=== PATIENT | male | born 1995 | race Caucasian/White ===

== ENCOUNTER 2020-05-31 07:02 | Outpatient (CLI) | payer BC, SELFPAY ==
--- NOTE | 2020-06-04 07:44 | SLEEP_ITS ---
HOME SLEEP STUDY DATE OF STUDY: 05/31/2020 ORDERING PHYSICIAN: Dr. Saleem Brown. REASON FOR THE STUDY: Hypersomnia. HISTORY: This patient is a 24-year-old man, 278 pounds weight, height is 6 feet tall, so his BMI is 37.7. He has complaints of unable to wake up and the alarm goes off in the morning. In fact, he cannot wake up at all unless somebody else is present to assure that he wakes. He frequently snores, but only rarely is at loud enough that others complain about it. He is excessively sleepy in the morning and has difficulty waking up. He rarely has trouble sleeping with a cold, rarely gasps for breath at night and rarely has breathing problems at night reported to him by others. He constantly sweats excessively at night. He does not notice his heart pounding or beating irregularly at night. He frequently falls asleep during the day, constantly involuntarily, rarely while driving, never with physical effort. He does not have loss of muscle tone with strong emotion. He frequently has daytime difficulty due to excessive sleepiness. 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 He does not feel paralyzed on waking or falling asleep. He does not have vivid dreamlike scenes upon awakening or falling asleep. He is never afraid to go to sleep. He does not have nightmares. He occasionally remembers his dreams, occasionally has racing thoughts, occasionally feels sad or depressed, frequently feels anxious. He rarely has muscular tension. He occasionally notices parts of his body jerking. He never kicks at night, does not have crawly achy feelings in his legs at night, does not have leg pain at night and does not have morning jaw pain. He does not grind his teeth at night. He rarely is bothered by pain during the day. He is never awakened by pain at night. He occasionally wakes up feeling stiff in the morning. He does not wake up with sore achy muscles. He rarely wakes up with pain in the neck and spine. He has stomach problems, fatigue. He feels tense, depressed, has a difficult time making decisions and takes antacids regularly. Normal bedtime is between 9 and 10 p.m., taking a 0.5 hour or an hour to fall asleep, sometimes not waking at all, but on other occasions, he wakes to use the bathroom. He usually wakes up in the middle of the night. He wakes in the morning at 6:30 a.m. On the weekends, he may stay awake until 10-12 midnight and then awaken the following day between 11 a.m. and 12 noon, so he does get recovery sleep. He does not take naps. A short nap is not refreshing. He is usually drowsy in the morning for 3 hours or longer. MEDICAL COMORBIDITIES: Gastroesophageal reflux disease, seasonal allergies. MEDICATIONS: None listed. HABITS: Tobacco quit a year ago. Caffeine, 2 to 4 servings a day. He drinks alcohol not daily, just on the weekends. He uses marijuana as a recreational drugs. DESCRIPTION OF THE STUDY: On the Brokaw Sleepiness Scale, the score is 16. This was conducted as an unattended type 3 portable home sleep test using 4 channel monitoring including respiratory effort channel, snoring channel, oxygen saturation channel, and heart rate channel. This study was scored using [facility] guidelines. Duration of the study was 7 hours 7 minutes. The apnea-hypopnea index is elevated at 15. Oxygen desaturation index is 18.5. The lowest desaturation was 47%. The baseline average saturation was 92%. He had 3 apneas, which were obstructive, 104 hypopneas and 106 snoring events. He desaturated 115 times and spent 70 minutes, 19% of the study below 88%. Heart rate ranged from 50 to 105. IMPRESSION: 1. This home sleep test shows at least moderate obstructive sleep apnea syndrome G47.33 with an apnea-hypopnea index of 15, deep Systane desaturation
== END 2020-05-31 07:03 | disposition home or self-care (01) ==
LOC: ANHCSM 07:03
PROVIDERS: Visit Provider Internal Medicine
DX: G47.33 Obstructive sleep apnea (adult) (pediatric) (principal)
CPT/HCPCS: 95806

== ENCOUNTER → 2021-09-21 02:35 | Outpatient (CLI) | payer BC, SELFPAY ==
[2021-09-21 18:29] LABS: SARS-CoV-2 RNA PCR Negative
== END ==
PROVIDERS: PCP Internal Medicine; Visit Provider Internal Medicine Critical Care Medicine
DX: R68.89 Other general symptoms and signs (principal); Z20.822 Contact with and (suspected) exposure to COVID-19
CPT/HCPCS: C9803; U0003; U0005

== ENCOUNTER 2021-09-23 07:38 | Outpatient (CLI) | payer BC, SELFPAY ==
--- NOTE | 2021-10-17 13:15 | WPDSLEEPSTUD ---
Sleep Study Date of Study: 09/23/21 <Yumiko Mcdermott DO - Last Filed: 10/18/21 11:11> Ordering Provider: Hui Cheng MD <Yumiko Mcdermott DO - Last Filed: 10/18/21 11:11> Interpreting Physician: Yumiko Mcdermott DO <Yumiko Mcdermott DO - Last Filed: 10/18/21 11:11> Sleep Study Type: CPAP Titration <Yumiko Mcdermott DO - Last Filed: 10/18/21 11:11> Height: 1.83 m <Yumiko Mcdermott DO - Last Filed: 10/18/21 11:11> Weight: 127.006 kg <Yumiko Mcdermott DO - Last Filed: 10/18/21 11:11> Body Mass Index: 38.0 <Yumiko Mcdermott DO - Last Filed: 10/18/21 11:11> Neck Circumference (inches): 18 <Yumiko Mcdermott DO - Last Filed: 10/18/21 11:11> [place]: 6 <Yumiko Mcdermott DO - Last Filed: 10/18/21 11:11> Reason for Sleep Study Patient has known EVE and is currently on autoPAP 5-20 cm H2O. He states that he is wakes up during the night with the tubing wrapped around his neck. He ends up pulling the CPAP into his bed, spilling the water from the humidifier chamber in the bed. He uses the restroom during the night, but can't recall any of this. Concerns for additional sleep disorder. Patient has an average usage of 2.6 hours. <Yumiko Mcdermott DO - Last Filed: 10/18/21 11:11> Sleep History The patient is a 26-year-old male with seasonal allergies, GERD and known EVE that had a Pap titration ordered by his registered occupational therapist due to difficulties tolerating autoPap. The patient had a home sleep study on May 31, 2020 that showed an AHI of 15. The patient was prescribed auto PAP 5-20 cm H2O. The patient states that he wakes up during the night with the CPAP tubing wrapped around his neck. He ends up poly the machine into is bed because of that and spells of water from the humidifier chamber over his bed sheets. The patient's states that he gets up to use the restroom throughout the night but the patient has no recollection of this. There are concerns for a compounding sleep disorder. The patient denies awakening from sleep short of breath. He rarely awakens at night with heartburn, belching or cough. He occasionally snores loud enough that others complain. He occasionally has trouble sleeping when he has a cold. He denies waking up gasping for air throughout the night. He denies having breathing problems at night observed by others. He rarely sweats excessively at night. He denies having heart palpitations or irregular heartbeats during the night. He rarely falls asleep during the day and rarely falls asleep while driving. He denies sleep paralysis, cataplexy and hypnagogic / hypnopompic hallucinations. He rarely has trouble at work due to sleepiness. He occasionally has nightmares. He frequently has thoughts racing through his mind. He rarely feels sad or depressed. He occasionally has anxiety. He rarely notices parts of his body jerk. He occasionally kicks during the night. He denies crawling and aching feeling in his legs as well as leg pain during the night. He denies grinding his teeth during sleep and will rarely have mornings jaw pain. He denies being bothered by pain during the day and being awakened by pain during the night. He occasionally wakes up feeling stiff in the morning. He will rarely wake-up with sore and achy muscles. He will rarely wake up with pain in the neck, spine and other joints. The patient states that he has variable shifts at work and the schedule changes every week. The patient goes to bed at 8:30 p.m. on weekdays and between 10:00 p.m. and midnight on the weekends. It takes him an hour to fall asleep. He wakes up between 1-2 times per night. When he awakens, he will use the restroom and get a drink. He can fall asleep quickly. He wakes up at 6:30 a.m. on weekdays and between 9 and 10:00 a.m. on the weekend. He will get 6-7 hours of sleep per night. He will stay in bed for 1 hour after awakening
[2021-10-18 11:10] VITALS: BMI 38.0
== END 2021-09-24 07:21 | disposition home or self-care (01) ==
LOC: ANHCSM 07:38
PROVIDERS: PCP Internal Medicine; Visit Provider Internal Medicine Critical Care Medicine
DX: G47.33 Obstructive sleep apnea (adult) (pediatric) (principal)
CPT/HCPCS: 95811

== ENCOUNTER 2022-12-06 09:18 | Emergency (ER) | payer BC, SELFPAY ==
[2022-12-06 09:23] VITALS: BP 129/72; PULSE 83; RESP 16; TEMP 35.8; O2SAT 98
--- NOTE | 2022-12-06 09:23 | ED.URI ---
HPI - URI/Sore Throat General Chief Complaint: Upper Respiratory Infection Stated Complaint: Sinus Congestion Time Seen by Provider: 12/06/22 09:23 Source: patient and RN notes reviewed History of Present Illness HPI Narrative: Patient is a 27-year-old male who presents to urgent care with complaints of sinus congestion, sore throat fever. Patient has been taking Mucinex, Zyrtec D and Tylenol since Sunday. Denies any nausea or vomiting. No other acute complaints. No acute distress noted. Patient aware of the plan of care. Some parts of this dictation were generated by voice recognition software and may contain typographical and/or grammatical inaccuracies. Related Data Home Medications Medication Instructions Recorded Confirmed cholecalciferol (vitamin D3) 25 25 mcg PO DAILY 05/31/21 12/06/22 mcg (1,000 unit) capsule Allergies Allergy/AdvReac Type Severity Reaction Status Date / Time No Known Allergies Allergy Verified 12/06/22 09:36 Review of Systems Review of Systems: CONSTITUTIONAL: Reports of fever EYES: Denies visual changes, redness, or discharge. ENT: Reports of sinus congestion, drainage, sore throat CARDIOVASCULAR: Denies chest pain, palpitations, or edema. RESPIRATORY: Denies cough or dyspnea. GASTROINTESTINAL: Denies abdominal pain, nausea, vomiting, or diarrhea. GENITOURINARY: Denies dysuria or hematuria. SKIN: Denies rash or itching. MUSCULOSKELETAL: Denies back pain, joint pain, or myalgia. NEUROLOGIC: Denies headache, numbness, or weakness. All other systems reviewed are negative, except as documented in HPI. [facility] Past Medical History Medical History EVE (obstructive sleep apnea) Social History Social History Social History: , works for [employer]. 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 Smoking packs per day: 1 Smoking cigarettes per day: 20.0 Years smoked: 6 Smoking pack-years: 6.00 Smoking status: Current every day smoker (vapes) Tobacco type: e-cigarettes/vaping Alcohol intake: current Alcohol use details: Social Substance use: current Substance use type: marijuana Living arrangements: with family Occupation/Education: occupation Comments At the time of my signature, I reviewed and agree with the nursing past medical, surgical, social, and family history. There is no relevant family history pertinent to the patient complaint. Exam Narrative: GENERAL: This is a well-nourished, well-developed patient, in no apparent distress. HEAD: normocephalic, atraumatic. EYES: PERRL. Sclera clear/white. Vision is grossly intact. EARS: External ears normal, auditory canals clear and without drainage, TMs normal without perforation. Hearing grossly intact. NOSE: External nose normal with no obvious nasal discharge, nares without redness, no rhinorrhea. THROAT: Mucous membranes moist. Moderate erythema to posterior pharynx with mild to moderate bilateral tonsillar edema/erythema with moderate postnasal drainage NECK: Neck supple, non-tender bilateral submandibular lymphadenopathy CARDIOVASCULAR: Regular rate and rhythm RESPIRATORY: Clear to auscultation. Breath sounds equal bilaterally. No wheezes, rales, or rhonchi. SKIN: warm, intact with no suspicious lesions or rash, good texture and turgor. NEURO: awake, alert, and oriented to person, place and time. There were no obvious focal neurologic abnormalities. EXTREMITIES: No clubbing, cyanosis, or edema. Course Course Level of Care: Express Care Visit Vital Signs Vital signs: Vital Signs Temperature 96.4 F L 12/06/22 09:23 Pulse Rate 83 12/06/22 09:23 Respiratory Rate 16 12/06/22 09:23 Blood Pressure 129/72 12/06/22 09:23 Pulse Oximetry 98 12/06/22 09:23 Oxygen Delivery Room Air 12/06/22 09:23 Temperature 96.4 F L 12/06/22 09:23 Pulse Rate 83 12/06/22 09:
== END 2022-12-06 09:55 | disposition home or self-care (01) ==
PROVIDERS: Emergency Provider Nurse Practitioner Family
DX: J02.0 Streptococcal pharyngitis (principal); F17.290 Nicotine dependence, other tobacco product, uncomplicated
CPT/HCPCS: 87081; 87880; 99213; G0463

== ENCOUNTER 2024-09-27 16:43 | Emergency (ER) | payer BC, SELFPAY ==
[2024-09-27 17:04] VITALS: BP 132/75; PULSE 95; RESP 20; TEMP 38.9; O2SAT 96
--- NOTE | 2024-09-27 17:09 | ED.URI ---
HPI - URI/Sore Throat General Chief Complaint: Upper Respiratory Infection Stated Complaint: Body Aches/Cough/Sore Throat Time Seen by Provider: 09/27/24 17:14 Source: patient, RN notes reviewed and old records reviewed Mode of arrival: ambulatory Limitations: no limitations History of Present Illness HPI Narrative: 29 year old male presents to [facility] care with complaints of body aches, cough, sore throat, since yesterday with fevers up to 102F and chills. Patient reports that he has taken some Ibuprofen and Tylenol for his symptoms and fevers. Patient reports that he has been able to drink liquids has decreased appetite, has had any nausea no vomiting or any diarrhea. Patient reports some sinus congestion and some dry cough noted. MD elicited complaint: fever, cough, sore throat, rhinorrhea and nasal congestion Pertinent past history: other (strep) Onset (ago): day(s) Pain scale (0-10): 8 Able to tolerate fluids by mouth: Yes Treatments prior to arrival: acetaminophen and ibuprofen Related Data Home Medications ?Medication ?Instructions ?Recorded ?Confirmed ?Last Taken ?Type cholecalciferol (vitamin D3) 25 25 mcg PO DAILY 05/31/21 09/27/24 Unknown History mcg (1,000 unit) capsule Allergies Allergy/AdvReac Type Severity Reaction Status Date / Time No Known Allergies Allergy Verified 09/27/24 16:45 Review of Systems Review of Systems: CONSTITUTIONAL: Reports malaise, chills, sweats, or fever. EYES: Denies visual changes, redness, or discharge. ENT: Reports rhinorrhea, congestion, sinus pain, no otalgia and positive for sore throat. CARDIOVASCULAR: Denies chest pain, palpitations, or edema. RESPIRATORY: Reports cough.? Denies dyspnea. GASTROINTESTINAL: Denies abdominal pain, positive for nausea,no vomiting,no diarrhea SKIN: Denies rash or itching. MUSCULOSKELETAL:Reports myalgia. NEUROLOGIC: Denies headache. All systems reviewed & are unremarkable except as noted in HPI and below PMFSH Past Medical History Medical History Strep throat EVE (obstructive sleep apnea) Social History Social History Social History: , works for [employer]. 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 Smoking packs per day: 1 Smoking cigarettes per day: 20.0 Years smoked: 6 Smoking pack-years: 6.00 Smoking status: Current every day smoker (vapes) Tobacco type: e-cigarettes/vaping Alcohol intake: current Alcohol use details: Social Substance use: current Substance use type: marijuana Lack of Transportation: No Lack of Food: Never True Current Housing: I Have Housing Concerned About Future Housing: No Difficulty Paying Gas/Electric Bills: No Difficulty Paying for Meds: No Currently Unemployed: No Education: High School Diploma/GED Living arrangements: with family Occupation/Education: occupation Comments At time of signature, agree with nursing past medical, surgical, social and family history. There is no relevant family history pertinent to the presenting complaint Exam Narrative: GENERAL: Ill-appearing, well-nourished, and in no acute distress. HEAD: Normocephalic EYES: PERRLA, conjunctivae clear ENT: Nares clear, turbinates edematous and erythematous, clear discharge. Mucous membranes moist. TM pearly fung with dull light reflex bilaterally; no tragal tenderness. Oropharynx erythematous without lesions. Tonsils red mildly enlarged and without exudate, no drooling, no hoarseness, no trismus, uvula midline.post nasal drainage NECK: Supple. No lymphadenopathy CHEST: Clear to auscultation, breath sounds equal. No wheezing, rhonchi, rales, or stridor. No respiratory distress, speaks in full sentences.cough noted SAO2 96% on room air HEART: Regular rate and rhythm. No murmur heard. SKIN: Warm, dry, no rash. NEURO: Alert and oriented x3. PSYCH: Normal mood and affect Course Course Emergency Course: Patient is aware of diagnosis, understands and agrees to treatment plan.? Anticipatory guidance given.? Patient agrees to follow-up as directed and is aware of reasons to seek care at the emergency department. Portions of this record may have been created with voice recognition software Level of Care: Express Care Visit Vital Signs Vital signs: Vital Signs Temperature 38.9 C H 09/27/24 17:04 Pulse Rate 95 09/27/24 17:04 Respiratory Rate 20 09/27/24 17:04 Blood Pressure 132/75 09/27/24 17:04 Pulse Oximetry 96 09/27/24 17:04 Oxygen Delivery Room Air 09/27/24 17:04 Temperature 38.9 C H 09/27/24 17:04 Pulse Rate 95 09/27/24 17:04 Respiratory Rate 20 09/27/24 17:04 Blood Pressure 132/75 09/27/24 17:04 Pulse Oximetry 96 09/27/24 17:04 Oxygen Delivery Room Air 09/27/24 17:04 Reviewed MDM - URI/Sore Throat MDM Narrative Medical decision making narrative: Differential diagnosis considered: Campos virus, strep pharyngitis, allergic rhinitis, upper respiratory tract infection, sinusitis, rhinosinusitis, nasopharyngitis. viral pharyngitis, otitis media, otitis externa, pneumonia, bronchitis, viral cough syndrome, viral syndrome, and influenza.? Exam findings show no acute concerns or changes; patient is non-toxic appearing and is in no distress.? Patient is appropriate for outpatient treatment and follow-up. Differential Diagnosis Differential diagnosis: Likely upper respiratory infection, viral infection, influenza and other (COVID, strep pharyngitis) Medical Records Attestation: I reviewed the patient's medical records. Lab Data Attestation: I reviewed the patient's lab results. Lab results narrative: strep screen negative, strep culture sent. Covid antigen negative, Influenza A positive, influenza B negative Labs: Lab Results 09/27/24 Range/Units 17:30 POC Influenza A Ag Positive (Negative) POC Influenza B Ag Negative (Negative) POC SARS CoV-2 Ag Negative (Negative) POC Grp A Strep Screen Negative (Negative) reviewed Critical Care Time Critical Care Time Critical Care Time: No Discharge Plan Discharge Clinical Impression: Influenza A Patient Disposition: Home, Self-Care Condition: Stable Instructions: Antibiotic Form, Influenza (ED) Additional Instructions: Increase fluids especially juices and water [id number] cough and cold medicine of your choice for your symptoms Tylenol or ibuprofen heat to the face 20-30 minutes 4-6 times a day for pain Salt water gargles, throat lozenges or throat sprays as desired Antibiotic as directed--finished the medication Zofran for nausea and vomiting You must quarantine, you have to be fever free for 24 hours without use of Tylenol or ibuprofen before you can return to work If your symptoms persist, change or worsen significantly before you can contact your personal physician then please, without delay, go to the emergency department for further evaluation. Follow-up with PCP in 7-10 days or sooner if needed Follow up with PCP soon in regards to your blood pressure which is elevated above threshold for referral. Blood pressure above 120/80 may indicate pre-hypertension.132/75 Patient Language: [place] Prescriptions: New ondansetron 4 mg tablet,disintegrating 4 mg PO Q6H PRN (Reason: nausea and vomiting) Qty: 20 0RF No Action cholecalciferol (vitamin D3) 25 mcg (1,000 unit) capsule 25 mcg PO DAILY Follow-up/Referrals: PHYSICIAN,[employer] [employer] [Primary Care Provider] - Stand Alone Forms: Work/School Release IP Time of Disposition: 17:29 Quality [place] Coma Scale Eyes: Open Verbal: Oriented and Alert Motor: Follows Commands [place] Coma Total Score: 15
[2024-09-27 17:32] LABS: EDCOVIDSCREEN Negative (Negative); EDINFLUASCREEN Positive (Negative); EDINFLUBSCREEN Negative (Negative); EDSTREPNEGPOS1 Negative (Negative)
--- OUTSIDE RECORDS SUMMARY | 2024-10-04 23:20 | XMS_ITS | Encounter Summary ---
Author Organization [facility] Medical [facility] Address [address] [facility] [address] [place] [id number] Care Team Providers Care Timber Management Specialist Name Role Phone No, Physician Primary Care Provider [phone] Reason for Visit * Reason Comments Sore Throat Patient presents to clinic with sore throat, sinus pressure and nasal discharge. Sym onset 05/14/22 Encounter Details Date Type Department Care Team (Late st Contact Info) Description 05/16/2022 9:45 AM CDT Office Visit [facility] [address] [place] [id number] Libby Baker, PHU [address] [facility] [place] [address] Viral URI (Primary Dx); Sore throat Social History Tobacco Use Types Packs/Day Years Used Date Smoking Tobacco: Every Day E-cigarettes Smokeless Tobacco: Former Sex and Gender Information Value Date Recorded Sex Assigned at Not on file Legal Sex Male 11:30 AM CDT Gender Identity Not on file Sexual Orientation Not on file documented as of this encounter Last Filed Vital Signs Vital Sign Reading Time Taken Comments Blood Pressure 106/60 05/16/2022 9:44 AM CDT Pulse 72 05/16/2022 9:44 AM CDT Temperature 36.4 ??C (97.6 ??F) 05/16/2022 9:44 AM CD T Respiratory Rate 20 05/16/2022 9:44 AM CDT Oxygen Saturation 98% 05/16/2022 9:44 AM CDT Inhaled Oxygen Concentration - - Weight 124.7 kg (275 lb) 05/16/2022 9:44 AM CDT Height 182.9 cm (6') 05/16/2022 9:44 AM CDT Body Mass Index 37.3 05/16/2022 9:44 AM CDT documented in this encounter Patient Instructions * Patient Instructions* Libby Baker NP - 05/16/2022 9:45 AM CDT Complete any medications as prescribed You will need to take OTC medications Mucinex for chest congestion Sudafed for nasal/head congestion Zyrtec for nasal drainage Flonase for sinuses Dayquil/Delysm for cough Tylenol/Motrin for fever Drink plenty of fluids to stay hydrated Get plenty of rest If your symptoms worsen or you experience shortness of breath, RTC or go to ER. If you have been prescribed any medications, take them as directed documented in this encounter Progress Notes * Libby Baker NP - 05/16/2022 9:45 AM CDT Images from the original note were not included. Subjective/Objective Patient ID: Bahman Jones is a 26 y.o. male. Chief Complaint Sore Throat (Patient presents to clinic with sore throat, sinus pressure and nasal discharge. Sym onset 05/14/22) Presents to clinic for runny nose, sore throat, sinus pressure x2 days. He has not taken any OTC. Not covid vaccinated. Review of Systems Constitutional: Negative for activity change, appetite change, fatigue and fever. HENT: Positive for postnasal drip, rhinorrhea and sinus pressure. Eyes: Negative for discharge. Gastrointestinal: Negative for nausea. Musculoskeletal: Negative for myalgias. Skin: Negative for rash. Hematological: Negative for adenopathy. Physical Exam Vitals reviewed. Constitutional: General: He is not in acute distress. Appearance: Normal appearance. He is well-developed. He is not ill-appearing. HENT: Head: Normocephalic. Right Ear: Tympanic membrane, ear canal and external ear normal. Left Ear: Tympanic membrane, ear canal and external ear normal. Nose: No congestion or rhinorrhea. Right Sinus: No maxillary sinus tenderness or frontal sinus tenderness. Left Sinus: No maxillary sinus tenderness or frontal sinus tenderness. Mouth/Throat: Lips: [place]. Mouth: Mucous membranes are moist. Pharynx: Oropharynx is clear. Eyes: General: Right eye: No discharge. Left eye: No discharge. Conjunctiva/sclera: Conjunctivae normal. Cardiovascular: Rate and Rhythm: Normal rate and regular rhythm. Pulmonary: Effort: Pulmonary effort is normal. No respiratory distress. Breath sounds: Normal breath sounds and air entry. Abdominal: Tenderness: There is no abdominal tenderness. Musculoskeletal: General: Normal range of motion. Cervical back: Neck supple. Lymphadenopathy: Head: Right side of head: No tonsillar adenopathy. Left side of head: No tonsillar adenopathy. Cervical: No cervical adenopathy. Skin: General: Skin is warm and dry. Findings: No rash. Neurological: Mental Status: He is alert and oriented to person, place, and time. Mental status is at baseline. Psychiatric: Attention and Perception: Attention normal. Mood and Affect: Mood normal. Behavior: Behavior normal. Behavior is cooperative. Thought Content: Thought content normal. Judgment: Judgment normal. Vitals: 05/16/22 0944 BP: 106/60 Pulse: 72 Resp: 20 Temp: 36.4 ??C (97.6 ??F) SpO2: 98% Weight: 124.7 kg (275 lb) Height: 182.9 cm (6') Assessment/Plan Complete any medications as prescribed You will need to take OTC medications Mucinex for chest congestion Sudafed for nasal/head congestion Zyrtec for nasal drainage Flonase for sinuses Dayquil/Delysm for cough Tylenol/Motrin for fever Drink plenty of fluids to stay hydrated Get plenty of rest If your symptoms worsen or you experience shortness of breath, RTC or go to ER. If you have been prescribed any medications, take them as directed Diagnoses and all orders for this visit: Viral URI (Primary) - Throat culture Throat; Future Sore throat - POCT rapid strep A - COVID-19 POC - Throat culture Throat; Future Recent Results (from the past 4 hour(s)) POCT rapid strep A Collection Time: 05/16/22 9:57 AM Result Value Ref Range Rapid Strep A, POC Negative COVID-19 POC Collection Time: 05/16/22 9:57 AM Result Value Ref Range COVID-19 Ag POC (BD Veritor) Presumptive Negative Presumptive Negative, Invalid Patient Education: Disposition ??? Treatment plan including expectations, follow up, and return precautions discussed with patient/parent, verbalizes understanding. ??? Medication dosage, use, and potential adverse reactions discussed with patient/parent. ??? Advised to follow up with PCP if symptoms do not resolve as expected or sooner if condition worsens. ??? Signs/symptoms warranting ER evaluation reviewed. ??? Patient and/or guardian was given an opportunity to ask questions, questions answered. Libby Baker NP Cosigned by Dmitriy Pena MD at 05/16/2022 3:56 PM CDT documented in this encounter Plan of Treatment Not on file documented as of this encounter Procedures Procedure Name Priority Date/Time Associated Diagnosis Comments COVID-19 POC Routine 05/16/2022 9:57 AM CDT Sore throat POCT RAPID STREP Routine 05/16/2022 9:57 AM CDT Sore throat documented in this encounter Results * Throat culture Throat (05/16/2022 10:05 AM CDT) Report Final Report: No growth of pathogens. BHAKTI LUCIA Comment:Testing performed by : [facility], [address] [facility] [place] [address] Throat 05/16/2022 10:0 5 AM CDT 05/16/2022 8:38 PM CDT Narrative BHAKTI LUCIA - 05/18/2022 3:04 PM CDT Testing performed by [facility] Microbiology Laboratory ([phone]). us Libby Baker NP LAB MICROBIOLOGY - NERAL ORDERABLES Final Result BHAKTI LUCIA [address] Department [place] [address] * COVID-19 POC (05/16/2022 9:57 AM CDT) Pathologist [facility] COVID-19 Ag POC (BD Veritor) Presumptive Negative Presumptive Negative, Invalid [facility] Nasal 05/16/2022 9:57 AM CDT Libby Baker TERADATA ARCHITECT POINT OF CARE TEST OR DERABLES Final Result [facility] [address] [facility] [place] [address] * POCT rapid strep A (05/16/2022 9:57 AM CDT) Pathologist [facility] Rapid Strep A, POC Negative Swab 05/16/2022 9:57 AM CDT Libby Baker TERADATA ARCHITECT POINT OF CARE TEST OR DERABLES Final Result documented in this encounter Visit Diagnoses Diagnosis Viral URI- Primary Acute upper respiratory infections of unspecified site Sore throat Acute pharyngitis Sore throat Acute pharyngitis Viral URI Acute upper respiratory infections of unspecified site documented in this encounter Additional Health Concerns Infection Onset Date Last Indicated Resolved Time COVID: Suspected 05/16/2022 05/16/2022 05/16/2022 9:58 AM CDT documented as of this encounter Care Teams Timber Management Specialist Relationship Specialty Start Date End Date No, Physician PCP - General 04/23/18 documented as of this encounter
--- OUTSIDE RECORDS SUMMARY | 2024-10-04 23:20 | XMS_ITS | Encounter Summary ---
Author Organization [facility] Healthcare Address [address] [place] [address] Care Team Providers Care Enterprise Records Analyst Name Role Phone No, Physician Primary Care Provider [phone] Encounter Details Date Type Department Care Team (Latest Contact Info) Description 03/16/2024 3:04 PM CDT - 03/16/2024 11:59 PM CDT Hospital Encounter [address] [address] Acute viral syndrome Discharge Disposition: Discharge to home or self care Social History Tobacco Use Types Packs/Day Years Used Date Smoking Tobacco: Every Day E-cigarettes Smokeless Tobacco: Former Personal Safety Answer Date Recorded Getting School Help Needed Not on file 12/07 Sex and Gender Information Value Date Recorded Sex Assigned at Not on file Legal Sex Male 11:30 AM CDT Gender Identity Not on file Sexual Orientation Not on file documented as of this encounter Medications at Time of Discharge lidocaine viscous (XYLOCAINE) 2 % solutionIndications :Pharyngitis, unspecified etiology Apply 10 mL to the mouth or throat every 6 (six) hours as needed (sore throat) 100 mL 03/16/2024 polymyxin B-trimethoprim (POLYTRIM) ophthalmic solutionIndications :Acute conjunctivitis of left eye, unspecified acute conjunctivitis type Administer 1 drop into the left eye every 4 (four) hours 10 mL 07/19/2020 documented as of this encounter Discharge Disposition Disposition Code Departure Means Destination Discharge to home or self care documented in this encounter Miscellaneous Notes * Result Encounter Note - Venice Winter NP - 03/16/2024 11:59 PM CDT Please notify patient of negative covid-19, FLU and RSV results. If symptoms persist past 10-14 days or worsen at anytime follow up with the [facility] or your Primary Care Provider. * Result Encounter Note - Tanner Goldman MA - 03/16/2024 11:59 PM CDT Results given * Result Encounter Note - Venice Winter NP - 03/16/2024 11:59 PM CDT Please alert patient of negative throat culture. Patient should f/u with PCP if symptoms persist past 10-14 days or worsen at anytime. * Result Encounter Note - Tanner Goldman MA - 03/16/2024 11:59 PM CDT Results given documented in this encounter Plan of Treatment Not on file documented as of this encounter Procedures Procedure Name Priority Date/Time Associated Diagnosis Comments INFLUENZA A/B, RSV, AND COVID-19 PCR Routine 03/16/2024 3:04 PM CDT Acute viral syndrome THROAT CULTURE Routine 03/16/2024 3:04 PM CDT Acute viral syndrome documented in this encounter Results * Influenza A/B, RSV, and COVID-19 PCR Nasopharyngeal (03/16/2024 3:04 PM CDT) Pathologist [facility] COVID-19 RNA Negative Negative Influenza A RNA Negative Negative [facility] Influenza B RNA Negative Negative [facility] RSV RNA Negative Negative [facility] Comment: Interpretive data: Testing performed by [facility]. This test is performed using the [employer] Xpert Xpress CoV-2/Flu/RSV plus assay. This is a multiplex, real-time reverse transcriptase PCR assay intended for the qualitative detection of nucleic acid from SARS-CoV-2, influenza A, influenza B, and respiratory syncytial virus. This assay has been cleared by the [place] Food and Drug administration. The performance characteristics have been verified by the [facility]. ??Results must be considered in the clinical context, and a negative result does not rule out infection. Interpretive Data last revised 2023 Nasopharyngeal 03/16/2024 3: 04 PM CDT 03/16/2024 7:23 PM CDT Narrative [facility] - 03/16/2024 8:13 PM CDT Is the Patient experiencing symptoms consistent with COVID?->Yes Reason for testing?->Symptomatic Lizbeth Boles NP LAB MICROBIOLOGY - GENERAL ORDERABLES Final Result Performing Organization Address [facility] Co de Phone Number BHAKTI KHARI [address] Department [place] [address] [place] * Throat culture Throat (03/16/2024 3:04 PM CDT) Report Final Report: No growth of pathogens. Comment:Testing performed by : [facility], [address] [facility], [place]., [address] Throat 03/16/2024 3:04 PM CDT 03/16/2024 9:41 PM CDT Narrative [facility] - 03/18/2024 11:56 AM CDT Testing performed by [facility] Microbiology Laboratory ([phone]). Lizbeth Boles NP LAB MICROBIOLOGY - GENERAL ORDERABLES Final Result Performing Organization Address [facility] Co de Phone Number [facility] [address] [place] [address] documented in this encounter Visit Diagnoses Diagnosis Acute viral syndrome documented in this encounter Additional Health Concerns Infection Onset Date Last Indicated Resolved Time COVID: Suspected 03/16/2024 03/16/2024 03/16/2024 8:14 PM CDT documented as of this encounter Care Teams Enterprise Records Analyst Relationship Specialty Start Date End Date No, Physician PCP - General 04/23/18 documented as of this encounter
--- OUTSIDE RECORDS SUMMARY | 2024-10-04 23:20 | XMS_ITS | Encounter Summary ---
Author Organization [facility] Healthcare Address [address] [place] [address] Care Team Providers Care Pool Servicer Name Role Phone No, Physician Primary Care Provider [phone] Reason for Visit * Reason Comments URI Pt c/o waking with s weats, sore throat, nasal congestion, head congestion, body aches, that started this morning Encounter Details Date Type Department Care Team (Late st Contact Info) Description 03/16/2024 3:00 PM CDT Office Visit [facility] at [address] [address] Lizbteh Boles NP [address] [place] [address] [address] [place] [address] Acute viral syndrome (Primary Dx); Pharyngitis, unspecified etiology Social History Tobacco Use Types Packs/Day Years Used Date Smoking Tobacco: Every Day E-cigarettes Smokeless Tobacco: Former Tobacco Cessation:Ready to Q uit: Not Asked; Counseling Given: Not Answered Personal Safety Answer Date Recorded Getting School Help Needed Not on file 12/07 Sex and Gender Information Value Date Recorded Sex Assigned at Not on file Legal Sex Male 11:30 AM CDT Gender Identity Not on file Sexual Orientation Not on file documented as of this encounter Last Filed Vital Signs Vital Sign Reading Time Taken Comments Blood Pressure 100/66 03/16/2024 2:48 PM CDT Pulse 87 03/16/2024 2:48 PM CDT Temperature 36.8 ??C (98.3 ??F) 03/16/2024 2:48 PM CD T Respiratory Rate 18 03/16/2024 2:48 PM CDT Oxygen Saturation 97% 03/16/2024 2:48 PM CDT Inhaled Oxygen Concentration - - Weight 120.2 kg (265 lb) 03/16/2024 2:48 PM CDT Height 182.9 cm (6') 03/16/2024 2:48 PM CDT Body Mass Index 35.94 03/16/2024 2:48 PM CDT documented in this encounter Patient Instructions * Patient Instructions* Lizbeth Boles, SERVICE STATION CASHIER - 03/16/2024 3:00 PM CDT If you have no improvement or worsening of your symptoms, please follow up with your Primary Care Provider, [facility] Care and or Emergency Room. I strive to provide you with EXCELLENT service. You may receive a survey after your visit today. If you cannot rate your experience as EXCELLENT, please let us know how we can improve and better meet your needs. Thank you for choosing [facility]! It was my pleasure to see you today, I hope you feel better soon! Lizbeth Boles CALL CENTRE SUPERVISOR Upper Respiratory Infection: An upper respiratory infection or cold is a viral infection of the nose and throat. It can cause cough, congestion, runny nose, sore throat, and fever. Colds are contagious. Fever medicines can help reduce fever and pain, but the virus cannot be cured by an antibiotic, and cold medicines do not help. The body's immune system will fight off the virus. The cold usually improves in 3 to 7 days, but can cause cough for several weeks. OTC Medication Recommendations: You can use acetaminophen (Tylenol) or ibuprofen (Motrin) for fever or sore throat. Sudafed or pseudoephedrine may decrease sinus congestion. Do not use if you have a history of Hypertension (High Blood pressure). Mucinex for chest congestion. Flonase for runny nose/ear pressure/post nasal drip. Dayquil/Delsym for cough. (Coricidin HBP for cough if hypertensive). Claritin/Zyrtec for post nasal drip/drainage. Home Recommendations: Encourage fluids. Get plenty of rest You might use a cool mist humidifier/vaporizer in your room. Sleeping in a more upright position can be helpful. For infants, the nose can be cleared by using saline nose drops and suctioning with nasal bulb suction. Frequent suctioning can be irritating to infants and is best performed before feedings. Netipot or sinus rinses may be helpful for adults. Call your doctor or return to the emergency department if worse or: 1. Breathing trouble occurs. 2. Color is pale, bluish, or fung. 3. Child is weak or too sleepy. 4. No urination occurs in 12 hours. 5. Fever lasts for more than 2 days. * Attachments The following attachments cannot be sent through Care Everywhere. * Upper Respiratory Infection (AfterCare(R) Instructions(ER/ED)) (Japanese) documented in this encounter Ordered Prescriptions Prescription Sig Dispense Quantity Refills Last Filled Start Date End Date lidocaine viscous (XYLOCAINE) 2 % solutionIndications :Pharyngitis, unspecified etiology Apply 10 mL to the mouth or throat every 6 (six) hours as needed (sore throat) 100 mL 03/16/2024 documented in this encounter Progress Notes * Lizbeth Boles NP - 03/16/2024 3:00 PM CDT Images from the original note were not included. Subjective/Objective Patient ID: Bahman Jones is a 28 y.o. male. Chief Complaint URI (Pt c/o waking with sweats, sore throat, nasal congestion, head congestion, body aches, that started this morning) 28 year old male patient presents today with chills, body aches, nasal congestion and head congestion beginning this morning. Patient denies any shortness of breath. Reports some mild sore throat. Reports he was exposed to his daughter and who have recently had colds. URI Review of Systems All other systems reviewed and are negative. Physical Exam Constitutional: Appearance: Normal appearance. He is normal weight. He is not ill-appearing (mild). HENT: Head: Normocephalic. Right Ear: Tympanic membrane, ear canal and external ear normal. Left Ear: Tympanic membrane, ear canal and external ear normal. Nose: Nose normal. Mouth/Throat: Mouth: Mucous membranes are moist. Pharynx: Oropharynx is clear. Posterior oropharyngeal erythema (mild) present. Eyes: Pupils: Pupils are equal, round, and reactive to light. Cardiovascular: Rate and Rhythm: Normal rate and regular rhythm. Pulses: Normal pulses. Heart sounds: Normal heart sounds. Pulmonary: Effort: Pulmonary effort is normal. Breath sounds: Normal breath sounds. Musculoskeletal: General: Normal range of motion. Cervical back: Normal range of motion. Skin: General: Skin is warm and dry. Capillary Refill: Capillary refill takes less than 2 seconds. Neurological: General: No focal deficit present. Mental Status: He is alert and oriented to person, place, and time. Mental status is at baseline. Psychiatric: Mood and Affect: Mood normal. Behavior: Behavior normal. Thought Content: Thought content normal. Judgment: Judgment normal. Vitals: 03/16/24 1448 BP: 100/66 Pulse: 87 Resp: 18 Temp: 36.8 ??C (98.3 ??F) SpO2: 97% Weight: 120.2 kg (265 lb) Height: 182.9 cm (6') No results found. Past Medical History: Diagnosis Date ADHD (attention deficit hyperactivity disorder) Current Outpatient Medications: lidocaine viscous (XYLOCAINE) 2 % solution, Apply 10 mL to the mouth or throat every 6 (six) hours as needed (sore throat), Disp: 100 mL, Rfl: 0 polymyxin B-trimethoprim (POLYTRIM) ophthalmic solution, Administer 1 drop into the left eye every 4 (four) hours (Patient not taking: Reported on 03/16/2024), Disp: 10 mL, Rfl: 0 No Known Allergies Social History Tobacco Use Smoking status: Every Day Types: E-cigarettes Smokeless tobacco: Former Substance and Sexual Activity Drug use: None Sexual activity: None Alcohol Use: Not on file No past surgical history on file. Procedures Assessment/Plan Recent Results (from the past 4 hour(s)) POCT rapid strep A Collection Time: 03/16/24 2:54 PM Result Value Ref Range Rapid Strep A, POC Negative Negative Diagnoses and all orders for this visit: Acute viral syndrome (Primary) - POCT rapid strep A - Influenza A/B, RSV, and COVID-19 PCR Nasopharyngeal; Future - Throat culture Throat; Future Pharyngitis, unspecified etiology - lidocaine viscous (XYLOCAINE) 2 % solution; Apply 10 mL to the mouth or throat every 6 (six) hours as needed (sore throat) Plan: Patient's rapid strep was negative. Patient's symptoms began this morning so PCR was sent outfor viral testing. Discussed with patient likely viral in nature. We will send off viscous lidocaine for pharyngitis. We will also send a throat culture to rule out strep pharyngitis. Patient is nontoxic in nature. Discussed with patient OTC management including DayQuil, Tylenol and Motrin. Disposition Treatment plan including expectations, follow up, and return precautions discussed with patient/parent, verbalizes understanding. Medication dosage, use, and potential adverse reactions discussed with patient/parent. Advised to follow up with PCP if symptoms do not resolve as expected or sooner if condition worsens. Signs/symptoms warranting ER evaluation reviewed. Patient and/or guardian was given an opportunity to ask questions, questions answered. Lizbeth Boles NP documented in this encounter Plan of Treatment Not on file documented as of this encounter Procedures Procedure Name Priority Date/Time Associated Diagnosis Comments POCT RAPID STREP Routine 03/16/2024 2:54 PM CDT Acute viral syndrome documented in this encounter Results * Throat culture Throat (03/16/2024 3:04 PM CDT) Report Final Report: No growth of pathogens. Comment:Testing performed by : [facility], [address] [place]., [address] Throat 03/16/2024 3:04 PM CDT 03/16/2024 9:41 PM CDT Narrative BHAKTI LUCIA - 03/18/2024 11:56 AM CDT Testing performed by [facility] ([phone]). us Lizbeth Boles NP LAB MICROBIOLOGY - GENERAL ORDERABLES Final Result BHAKTI LUCIA [address] Department [place] [address] * Influenza A/B, RSV, and COVID-19 PCR Nasopharyngeal (03/16/2024 3:04 PM CDT) COVID-19 RNA Negative Negative Influenza A RNA Negative Negative [facility] Influenza B RNA Negative Negative [facility] RSV RNA Negative Negative [facility] Comment: Interpretive data: Testing performed by [facility]. This test is performed using the [employer] Xpert Xpress CoV-2/Flu/RSV plus assay. This is a multiplex, real-time reverse transcriptase PCR assay intended for the qualitative detection of nucleic acid from SARS-CoV-2, influenza A, influenza B, and respiratory syncytial virus. This assay has been cleared by the [place] Food and Drug administration. The performance characteristics have been verified by the [facility]. ??Results must be considered in the clinical context, and a negative result does not rule out infection. Interpretive Data last revised 2023 Nasopharyngeal 03/16/2024 3: 04 PM CDT 03/16/2024 7:23 PM CDT Narrative [facility] - 03/16/2024 8:13 PM CDT Is the Patient experiencing symptoms consistent with COVID?->Yes Reason for testing?->Symptomatic Lizbeth Boles NP LAB MICROBIOLOGY - GENERAL ORDERABLES Final Result [facility] [address] Department [place] [address] * POCT rapid strep A (03/16/2024 2:54 PM CDT) [facility] Rapid Strep A, POC Negative Negative Swab 03/16/2024 2:54 PM CDT us Lizbeth Boles NP POINT OF CARE TEST ORDERAB LES Final Result documented in this encounter Visit Diagnoses Diagnosis Acute viral syndrome- Primary Pharyngitis, unspecified etiology Acute viral syndrome documented in this encounter Additional Health Concerns Infection Onset Date Last Indicated Resolved Time COVID: Suspected 03/16/2024 03/16/2024 03/16/2024 8:14 PM CDT documented as of this encounter Care Teams Pool Servicer Relationship Specialty Start Date End Date No, Physician PCP - General 04/23/18 documented as of this encounter
--- OUTSIDE RECORDS SUMMARY | 2024-10-04 23:20 | XMS_ITS | Clinical Summary ---
Author Organization [address] Address [address] [place] [id number] Care Team Providers Care Sole Tacker Name Role Phone No, Physician Primary Care Provider [phone] Allergies No known active allergies Medications polymyxin B-trimethoprim (POLYTRIM) ophthalmic solutionIndication s:Acute conjunctivitis of left eye, unspecified acute conjunctivitis type Administer 1 drop into the left eye every 4 (four) hours 10 mL 07/19/20 20 Active Additional Information Patient not taking.Reported on 03/16/2024 lidocaine viscous (XYLOCAINE) 2 % solutionIndication s:Pharyngitis, unspecified etiology Apply 10 mL to the mouth or throat every 6 (six) hours as needed (sore throat) 100 mL 03/16/20 24 Active Active Problems No known active problems Medical History Medical History Date Comments ADHD (attention deficit hyperactivity disorder) Social History Tobacco Use Types Packs/Day Years [...] on file Sexual Orientation Not on file Obstetrics History Last Filed Vital Signs Vital Sign Reading [...] Mass Index 35.94 03/16/2024 2:48 PM CDT Plan of Treatment Health Maintenance Due Date Last Done Comments Depression Screening 1993 Hepatitis C Screening 1993 Pneumococcal vaccine <65 (1 of 2 - PCV) 1999 DTaP/Tdap/Td Vaccine (1 - Tdap) 2004 Varicella Vaccines (1 of 2 - 13+ 2-dose series) 2006 Hepatitis B Screening 2011 Regular Well Visit/Exam 18-64 2011 Influenza Vaccine (#1) 2024 HPV Vaccines Aged Out No longer eligi ble based on patient's age to complete this topic Insurance [employer] Care Teams Sole Tacker Relationship Specialty Start Date End Date No, Physician PCP - General 04/23/18
--- OUTSIDE RECORDS SUMMARY | 2024-10-04 23:20 | XMS_ITS | Encounter Summary ---
Author Organization [facility] Medical [facility] Address [address] [place] [id number] Care Team Providers Care Guest Experience Representative Name Role Phone No, Physician Primary Care Provider [phone] Reason for Visit * Reason Comments Eye Problem Pt. having issues wi th left eye. Onset this morning. Encounter Details Date Type Department Care Team (Late st Contact Info) Description 07/19/2020 11:45 AM CDT Office Visit [facility] [address] [facility] [place] [address] Libby Baker, WIND TURBINE SHEET METAL WORKER [address] [facility] [place] [address] Acute conjunctivitis of left eye, unspecified acute conjunctivitis type (Primary Dx) Social History Tobacco Use Types Packs/Day Years Used Date Smoking Tobacco: Every Day E-cigarettes Smokeless Tobacco: Former Sex and Gender Information Value Date Recorded Sex Assigned at Not on file Legal Sex Male 11:30 AM CDT Gender Identity Not on file Sexual Orientation Not on file documented as of this encounter Last Filed Vital Signs Vital Sign Reading Time Taken Comments Blood Pressure 110/76 07/19/2020 11:43 AM CDT Pulse 89 07/19/2020 11:43 AM CDT Temperature 36.4 ??C (97.6 ??F) 07/19/2020 11:43 AM C DT Respiratory Rate 20 07/19/2020 11:43 AM CDT Oxygen Saturation 97% 07/19/2020 11:43 AM CDT Inhaled Oxygen Concentration - - Weight 126.6 kg (279 lb) 07/19/2020 11:43 AM CDT Height 182.9 cm (6') 07/19/2020 11:43 AM CDT Body Mass Index 37.84 07/19/2020 11:43 AM CDT documented in this encounter Patient Instructions * Patient Instructions* Libby Baker NP - 07/19/2020 11:45 AM CDT Use your eye drops or ointment as directed Practice good hand hygiene before and after administering medication Wash your hands if you touch your eye Do not touch the tip of the medication bottle to your eye Follow up with PCP if you are not getting better in a 3-4 days Go to the ER if you experience deep eye pain or vision loss/changes documented in this encounter Ordered Prescriptions Prescription Sig Dispense Quantity Refills Last Filled Start Date End Date polymyxin B-trimethoprim (POLYTRIM) ophthalmic solutionIndications :Acute conjunctivitis of left eye, unspecified acute conjunctivitis type Administer 1 drop into the left eye every 4 (four) hours 10 mL 07/19/2020 documented in this encounter Progress Notes * Libby Baker NP - 07/19/2020 11:45 AM CDT Images from the original note were not included. Subjective/Objective Patient ID: Bahman Jones is a 24 y.o. male. Chief Complaint Eye Problem (Pt. having issues with left eye. Onset this morning.) Presents to clinic for left eye redness & discharge that he woke up with this am. It hurts a little, but it does not itch. He does not wear contacts. He flushed it w water Eye Problem The left eye is affected. This is a new problem. The current episode started today. The problem occurs constantly. The problem has been unchanged. There was no injury mechanism. The patient is experiencing no pain. There is no known exposure to pink eye. He does not wear contacts. Associated symptoms include an eye discharge and eye redness. Pertinent negatives include no blurred vision, fever, itching, nausea, photophobia or vomiting. He has tried water for the symptoms. The treatment providedmild relief. Review of Systems Constitutional: Negative for chills and fever. HENT: Negative for congestion and sore throat. Eyes: Positive for pain, discharge and redness. Negative for blurred vision, photophobia, itching and visual disturbance. Respiratory: Negative for cough and shortness of breath. Gastrointestinal: Negative for nausea and vomiting. Neurological: Negative for headaches. Physical Exam Vitals signs reviewed. Constitutional: Appearance: He is well-developed. HENT: Head: Normocephalic. Eyes: General: Left eye: Discharge present. Extraocular Movements: Extraocular movements intact. Conjunctiva/sclera: Left eye: Left conjunctiva is injected. Pupils: Pupils are equal, round, and reactive to light. Neck: Musculoskeletal: Normal range of motion. Cardiovascular: Rate and Rhythm: Normal rate and regular rhythm. Pulmonary: Effort: Pulmonary effort is normal. Breath sounds: Normal breath sounds. Musculoskeletal: Normal range of motion. Skin: General: Skin is warm and dry. Neurological: Mental Status: He is alert and oriented to person, place, and time. GCS: GCS eye subscore is 4. GCS verbal subscore is 5. GCS motor subscore is 6. Psychiatric: Speech: Speech normal. Behavior: Behavior normal. Vitals: 07/19/20 1143 BP: 110/76 BP Location: Left arm Patient Position: Sitting Pulse: 89 Resp: 20 Temp: 36.4 ??C (97.6 ??F) TempSrc: Temporal SpO2: 97% Weight: 126.6 kg (279 lb) Height: 182.9 cm (6') Assessment/Plan Use your eye drops or ointment as directed Practice good hand hygiene before and after administering medication Wash your hands if you touch your eye Do not touch the tip of the medication bottle to your eye Follow up with PCP if you are not getting better in a 3-4 days Go to the ER if you experience deep eye pain or vision loss/changes Diagnoses and all orders for this visit: Acute conjunctivitis of left eye, unspecified acute conjunctivitis type (Primary) - polymyxin B-trimethoprim (POLYTRIM) ophthalmic solution; Administer 1 drop into the left eye every 4 (four) hours Disposition- Discussed medications dosages, usage & potential side effects. Risks and interactions reviewed with patient. Indications for testing reviewed. Patient has been instructed to follow up w PCP or go to ER for any signs or symptoms that are of concern or worsening. Patient verbalizes understanding. The patient was given the opportunity to ask all questions and to have all questions answered. Patient is in agreement with the plan of care Libby Baker NP documented in this encounter Plan of Treatment Not on file documented as of this encounter Visit Diagnoses Diagnosis Acute conjunctivitis of left eye, unspecified acute conjunctivitis type- Primary documented in this encounter Care Teams Guest Experience Representative Relationship Specialty Start Date End Date No, Physician PCP - General 04/23/18 documented as of this encounter
--- OUTSIDE RECORDS SUMMARY | 2024-10-04 23:20 | XMS_ITS | Encounter Summary ---
Author Organization [facility] Address [address] [facility] [address] [place] [address] Care Team Providers Care Vault Installer Name Role Phone No, Physician Primary Care Provider [phone] Reason for Visit * Reason Comments Fever Had fever last night , no current fever, couldn't keep anything down, has not tried to eat anything today Encounter Details Date Type Department Care Team (Latest Contact Info) Description 09/09/2019 3:00 PM DIRECTOR HYDROGEN STORAGE ENGINEERING Office Visit [facility] [address] [place] [address] [place] [id number] Binta Lance, PHU [address] [place] [address] Nausea and vomiting, intractability of vomiting not specified, unspecified vomiting type (Primary Dx); Viral upper respiratory tract infection Social History Tobacco Use Types Packs/Day Years Used Date Smoking Tobacco: Former Smokeless Tobacco: Former Sex and Gender Information Value Date Recorded Sex Assigned at Not on file Legal Sex Male 11:30 AM CDT Gender Identity Not on file Sexual Orientation Not on file documented as of this encounter Last Filed Vital Signs Vital Sign Reading Time Taken Comments Blood Pressure 120/86 09/09/2019 3:17 PM DIRECTOR HYDROGEN STORAGE ENGINEERING Pulse 99 09/09/2019 3:17 PM DIRECTOR HYDROGEN STORAGE ENGINEERING Temperature 36.6 ??C (97.9 ??F) 09/09/2019 3:17 PM CS T Respiratory Rate 18 09/09/2019 3:17 PM DIRECTOR HYDROGEN STORAGE ENGINEERING Oxygen Saturation 97% 09/09/2019 3:17 PM DIRECTOR HYDROGEN STORAGE ENGINEERING Inhaled Oxygen Concentration - - Weight 128.4 kg (283 lb) 09/09/2019 3:17 PM DIRECTOR HYDROGEN STORAGE ENGINEERING Height 182.9 cm (6') 09/09/2019 3:17 PM DIRECTOR HYDROGEN STORAGE ENGINEERING Body Mass Index 38.38 09/09/2019 3:17 PM DIRECTOR HYDROGEN STORAGE ENGINEERING documented in this encounter Patient Instructions * Patient Instructions* Binta Lance, PHU - 09/09/2019 3:00 PM DIRECTOR HYDROGEN STORAGE ENGINEERING Your symptoms and physical exam are likely related to a viral gastritis. The primary concern when managing symptoms is to prevent dehydration. Drink small sips of water or gatorade as tolerated and advance to bland foods such as bread or clear soups. Take the Zofran prescribed if you are having a difficult time keeping liquids down. Rest as much as possible. Go to the Emergency Department if nausea, vomiting, and diarrhea persist, for increased abdominal pain, blood in your stool or vomit, or for signs of dehydration including dry oral mucosa. Recommendations and Information The main treatment for respiratory infections of any kind is to rest, eat healthy, and drink plentyof fluids. Cold symptoms will likely last anywhere from 7-10 days with symptoms feeling much worse on days 3-5. Antibiotic medications do not cure a cold nor do antibiotic medications help to shortenthe symptoms of viral illness. The following may help you feel better: ??? Over the counter antihistamine such as loratadine (Claritin) or cetirizine (Zyrtec) to reduce secretions. The D formula includes pseudoephedrine and can be helpful as a decongestant but should not be used if you have a history of high blood pressure. ??? Tessalon if prescribed for cough. ?? Albuterol inhaler if prescribed for shortness of breath, cough, or wheezing. Use you albuterol inhaler or nebulizer every 4 hours for the next 48 hours, then every 4-6 hours as needed. ??? Don't smoke and avoid second hand smoke. ??? Suck on cough drops or hard candies to soothe a dry or sore throat. Cough drops won't stop yourcough, but they may make your throat feel better. ?? Over the counter loratadine (Claritin) or cetirizine (Zyrtec) to reduce secretions. ?? Mucinex to thin secretions ??? Breathe moist air from a humidifier, a hot shower, or a sink filled with hot water. The heat and moisture can help keep mucus in your airways moist so you can cough it out easily. ??? Use nonprescription medicine, such as acetaminophen, ibuprofen, or aspirin, to relieve fever and body aches. Don't give aspirin to anyone younger than age 20. ??? Rest more than usual. ??? Drink plenty of fluids so that you do not become dehydrated and to keep mucous thin. ??? Use an rtry-agv-exhkgzk cough medicine such as Delsym or Robitussin. (Cough medicines may not be safe for young children or for people who have certain health problems.) Cough suppressants may help you to stop coughing. Expectorants, such as Mucinex, can help you bring up mucus when you cough. ??? Follow up with primary care physician in 1 week, or sooner if symptoms worsen. If you experience worsening shortness of breath or fever >101, go to the Emergency Room. CTOR [employer] STORAGE ENGINEERING documented in this encounter Progress Notes * Binta Lance NP - 09/09/2019 3:00 PM CST Images from the original note were not included. Subjective/Objective Patient ID: Bahman Jones is a 23 y.o. male. Chief Complaint Fever (Had fever last night, no current fever, couldn't keep anything down, has not tried to eat anything today) Presents to [facility] with c/o cough x3 days, and N/V/D, onset last noc. Reports a subjectivefever, states that his significant other felt he was warm. He has been sleepy today, denies emesis today. He took mucinex and delsym last noc for respiratory symptoms, he has not taken anything today. Denies abdominal pain. Review of Systems Constitutional: Negative for chills and fever. HENT: Positive for congestion. Negative for ear pain, postnasal drip, rhinorrhea and sore throat. Respiratory: Negative for cough, chest tightness, shortness of breath and wheezing. Cardiovascular: Negative for chest pain. Gastrointestinal: Positive for diarrhea, nausea and vomiting. Negative for abdominal pain. Skin: Negative for rash. Neurological: Negative for headaches. Physical Exam Vitals signs reviewed. Constitutional: Appearance: He is well-developed. HENT: Right Ear: External ear normal. Tympanic membrane is not injected, erythematous or bulging. Left Ear: External ear normal. Tympanic membrane is not injected, erythematous or bulging. Nose: Right Sinus: No maxillary sinus tenderness or frontal sinus tenderness. Left Sinus: No maxillary sinus tenderness or frontal sinus tenderness. Mouth/Throat: Pharynx: No posterior oropharyngeal erythema. Tonsils: No tonsillar exudate. Eyes: Conjunctiva/sclera: Conjunctivae normal. Cardiovascular: Rate and Rhythm: Normal rate and regular rhythm. Pulmonary: Effort: Pulmonary effort is normal. Breath sounds: Normal breath sounds. No wheezing or rhonchi. Abdominal: Palpations: Abdomen is soft. Musculoskeletal: Normal range of motion. Skin: General: Skin is warm and dry. Neurological: Mental Status: He is alert and oriented to person, place, and time. Vitals: 09/09/19 1517 BP: 120/86 BP Location: Left arm Patient Position: Sitting Pulse: 99 Resp: 18 Temp: 36.6 ??C (97.9 ??F) TempSrc: Oral SpO2: 97% Weight: 128.4 kg (283 lb) Height: 182.9 cm (6') Assessment/Plan No abdominal pain. No blood in stool. Patient reports last emesis last noc. No red flags to warrantimmediate evaluation in ED. Discussed bland diet and ensuring continued adequate intake. Recommend he avoid antidiarrhea medications and eat bland diet. Discussed return precautions including immediate evaluation in ED if he develops sharp, localized abdominal pain, intractable N/V, blood in stool or emesis, weakness, dizziness, or other concerning symptoms. Follow up with PCP in two days if symptoms not resolved. Diagnoses and all orders for this visit: Nausea and vomiting, intractability of vomiting not specified, unspecified vomiting type (Primary) Viral upper respiratory tract infection Patient Education: Your symptoms and physical exam are likely related to a viral gastritis. The primary concern when managing symptoms is to prevent dehydration. Drink small sips of water or gatorade as tolerated and advance to bland foods such as bread or clear soups. Take the Zofran prescribed if you are having a difficult time keeping liquids down. Rest as much as possible. Go to the Emergency Department if nausea, vomiting, and diarrhea persist, for increased abdominal pain, blood in your stool or vomit, or for signs of dehydration including dry oral mucosa. Recommendations and Information The main treatment for respiratory infections of any kind is to rest, eat healthy, and drink plentyof fluids. Cold symptoms will likely last anywhere from 7-10 days with symptoms feeling much worse on days 3-5. Antibiotic medications do not cure a cold nor do antibiotic medications help to shortenthe symptoms of viral illness. The following may help you feel better: ??? Over the counter antihistamine such as loratadine (Claritin) or cetirizine (Zyrtec) to reduce secretions. The D formula includes pseudoephedrine and can be helpful as a decongestant but should not be used if you have a history of high blood pressure. ??? Tessalon if prescribed for cough. ?? Albuterol inhaler if prescribed for shortness of breath, cough, or wheezing. Use you albuterol inhaler or nebulizer every 4 hours for the next 48 hours, then every 4-6 hours as needed. ??? Don't smoke and avoid second hand smoke. ??? Suck on cough drops or hard candies to soothe a dry or sore throat. Cough drops won't stop yourcough, but they may make your throat feel better. ?? Over the counter loratadine (Claritin) or cetirizine (Zyrtec) to reduce secretions. ?? Mucinex to thin secretions ??? Breathe moist air from a humidifier, a hot shower, or a sink filled with hot water. The heat and moisture can help keep mucus in your airways moist so you can cough it out easily. ??? Use nonprescription medicine, such as acetaminophen, ibuprofen, or aspirin, to relieve fever and body aches. Don't give aspirin to anyone younger than age 20. ??? Rest more than usual. ??? Drink plenty of fluids so that you do not become dehydrated and to keep mucous thin. ??? Use an ewcr-oli-ridicsi cough medicine such as Delsym or Robitussin. (Cough medicines may not be safe for young children or for people who have certain health problems.) Cough suppressants may help you to stop coughing. Expectorants, such as Mucinex, can help you bring up mucus when you cough. ??? Follow up with primary care physician in 1 week, or sooner if symptoms worsen. If you experience worsening shortness of breath or fever >101, go to the Emergency Room. Disposition ??? Treatment plan including expectations, follow up, and return precautions discussed with patient/parent, verbalizes understanding. ??? Medication dosage, use, and potential adverse reactions discussed with patient/parent. ??? Advised to follow up with PCP if symptoms do not resolve as expected or sooner if condition worsens. ??? Signs/symptoms warranting ER evaluation reviewed. Binta Lance NP [employer]OR [employer]ORAGE ENGINEERING documented in this encounter Plan of Treatment Not on file documented as of this encounter Visit Diagnoses Diagnosis Nausea and vomiting, intractability of vomiting not specified, unspecified vomiting type- Primary Viral upper respiratory tract infection Acute upper respiratory infections of unspecified site documented in this encounter Care Teams Vault Installer Relationship Specialty Start Date End Date No, Physician PCP - General 04/23/18 documented as of this encounter
--- OUTSIDE RECORDS SUMMARY | 2024-10-04 23:20 | XMS_ITS | Referral Summary ---
Author Organization [address] Address [address] [place] [id number] Care Team Providers Care Aromatherapist Name Role Phone No, Physician Primary Care Provider [phone] Allergies No known active allergies Medications polymyxin [...] Active Active Problems No known active problems Social History Tobacco Use Types Packs/Day Years [...] on file Sexual Orientation Not on file Last Filed Vital Signs Vital Sign Reading [...] 03/16/2024 2:48 PM CDT Plan of Treatment Not on file Insurance [employer] ACCESS CHOICE ANTHEM ACCESS CHOICE Care Teams Aromatherapist Relationship Specialty Start Date End Date No, Physician PCP - General 04/23/18
--- OUTSIDE RECORDS SUMMARY | 2024-10-04 23:20 | XMS_ITS | Encounter Summary ---
Author Organization [facility] Address [address] [place] [address] [place] [address] Care Team Providers Care Hopper Attendant Name Role Phone No, Physician Primary Care Provider [phone] Reason for Visit * Reason Comments Earache left ear pain Encounter Details Date Type Department Care Team (Late st Contact Info) Description 04/23/2018 11:30 AM CDT Office Visit [facility] [address] [facility] [place] [phone] Ajay Betancourt NP [address] [facility] [address] [place], [place] [id number] Acute diffuse otitis externa of left ear (Primary Dx) Social History Tobacco Use Types Packs/Day Years Used Date Smoking Tobacco: Every Day Smokeless Tobacco: Never Sex and Gender Information Value Date Recorded Sex Assigned at Not on file Legal Sex Male 11:30 AM CDT Gender Identity Not on file Sexual Orientation Not on file documented as of this encounter Last Filed Vital Signs Vital Sign Reading Time Taken Comments Blood Pressure 124/78 04/23/2018 11:41 AM CDT Pulse 101 04/23/2018 11:41 AM CDT Temperature 37.1 ??C (98.7 ??F) 04/23/2018 11:41 AM C DT Respiratory Rate 18 04/23/2018 11:41 AM CDT Oxygen Saturation 96% 04/23/2018 11:41 AM CDT Inhaled Oxygen Concentration - - Weight 129.3 kg (285 lb) 04/23/2018 11:41 AM CDT Height 182.9 cm (6') 04/23/2018 11:41 AM CDT Body Mass Index 38.65 04/23/2018 11:41 AM CDT documented in this encounter Patient Instructions * Patient Instructions* Ajay Betancourt, WINDSCREEN FITTER - 04/23/2018 12:25 PM CDT Images from the original note were not included. Use the ear drops as prescribed no swimming for the next 7 days use swimmers ear after swimming forthe rest of the summer. If not improving follow up with PCP. If hearing decreases or intense pain go to the emergency department. Patient Education Otitis Externa WHAT YOU NEED TO KNOW: Otitis externa, or swimmer's ear, is an infection in the outer ear canal. This canal goes from the outside of the ear to the eardrum. DISCHARGE INSTRUCTIONS: Seek care immediately if: ?? You have severe ear pain. ?? You are suddenly unable to hear at all. ?? You have new swelling in your face, behind your ears, or in your neck. ?? You suddenly cannot move part of your face. ?? Your face suddenly feels numb. Contact your healthcare provider if: ?? You have a fever. ?? Your signs and symptoms do not get better after 2 days of treatment. ?? Your signs and symptoms go away for a time, but then come back. ?? You have questions or concerns about your condition or care. Medicines: ?? NSAIDs , such as ibuprofen, help decrease swelling, pain, and fever. This medicine is available with or without a doctor's order. NSAIDs can cause stomach bleeding or kidney problems in certain people. If you take blood thinner medicine, always ask if NSAIDs are safe for you. Always read the medicine label and follow directions. Do not give these medicines to children under 6 months of age without direction from your child's healthcare provider. ?? Acetaminophen decreases pain and fever. It is available without a doctor's order. Ask how much to take and how often to take it. Follow directions. Acetaminophen can cause liver damage if not taken correctly. ?? Ear drops that contain an antibiotic may be given. The antibiotic helps treat a bacterial infection. You may also be given steroid medicine. The steroid helps decrease redness, swelling, and pain. ?? Take your medicine as directed. Contact your healthcare provider if you think your medicine is not helping or if you have side effects. Tell him or her if you are allergic to any medicine. Keep a list of the medicines, vitamins, and herbs you take. Include the amounts, and when and why you take them. Bring the list or the pill bottles to follow-up visits. Carry your medicine list with you in case of an emergency. Follow up with your healthcare provider as directed: Write down your questions so you remember to ask them during your visits. How to use eardrops: ?? Lie down on your side with your infected ear facing up. ?? Carefully drip the correct number of eardrops into your ear. Have another person help you if possible. ?? Gently move the outside part of your ear back and forth to help the medicine reach your ear canal. ?? Stay lying down in the same position (with your ear facing up) for 3 to 5 minutes. Prevent otitis externa: ?? Do not put cotton swabs or foreign objects in your ears. ?? Wrap a clean moist washcloth around your finger, and use it to clean your outer ear and remove extra ear wax. ?? Use ear plugs when you swim. Dry your outer ears completely after you swim or bathe. ?? 2017 [employer] Information is for End User's use only and may not be sold, redistributed or otherwise used for commercial purposes. All illustrations and images included in CareNotes?? are the copyrighted property of [employer]. or [employer]. The above information is an employment educational coord only. It is not intended as medical advice for individual conditions or treatments. Talk to your doctor, nurse or pharmacist before following any medical regimen to see if it is safe and effective for you. documented in this encounter Ordered Prescriptions Prescription Sig Dispense Quantity Refills Last Filled Start Date End Date neomycin-polymyxin -HC (CORTISPORIN) 3.5-10,000-1 mg/mL-unit/mL-% otic suspensionIndicati ons:Acute diffuse otitis externa of left ear Administer 2 drops into the left ear 4 (four) times a day for 7 days. 10 mL 04/23/2018 8 documented in this encounter Progress Notes * SerafinEdAjay Althea, WINDSCREEN FITTER - 04/23/2018 11:30 AM CDT Subjective Patient ID: Bahman Jones is a 22 y.o. male. Earache (left ear pain ) Left ear pain onset 2 weeks ago gradually getting worse has been swimmiong several times and using swimmers ear with no relief Earache There is pain in the left ear. This is a new problem. The current episode started 1 to 4 weeks ago.The problem occurs constantly. The problem has been gradually worsening. There has been no fever. The pain is at a severity of 5/10. The pain is moderate. Pertinent negatives include no abdominal pain, coughing, diarrhea, ear discharge, headaches, hearing loss, neck pain, rash, rhinorrhea, sore throat or vomiting. He has tried acetaminophen for the symptoms. The treatment provided mild relief. There is no history of a chronic ear infection or hearing loss. Review of Systems Constitutional: Positive for activity change. Negative for fatigue and fever. HENT: Positive for ear pain. Negative for ear discharge, hearing loss, rhinorrhea and sore throat. Respiratory: Negative for cough. Gastrointestinal: Negative for abdominal pain, diarrhea and vomiting. Musculoskeletal: Negative for neck pain. Skin: Negative for rash. Allergic/Immunologic: Negative for environmental allergies. Neurological: Negative for headaches. Psychiatric/Behavioral: Negative for behavioral problems. Objective Physical Exam Constitutional: He is oriented to person, place, and time. He appears well- developed and well-nourished. HENT: Head: Normocephalic. Right Ear: Hearing, tympanic membrane and external ear normal. Left Ear: Tympanic membrane and external ear normal. Decreased hearing is noted. Nose: Nose normal. Mouth/Throat: Uvula is midline, oropharynx is clear and moist and mucous membranes are normal. Tonsils are 0 on the right. Tonsils are 0 on the left. No tonsillar exudate. Canal red and irritated decreased hearing TM intact Eyes: Pupils are equal, round, and reactive to light. Conjunctivae and EOM are normal. Neck: Normal range of motion. Neck supple. Cardiovascular: Normal rate, regular rhythm and normal heart sounds. Pulmonary/Chest: Effort normal and breath sounds normal. Abdominal: Soft. Bowel sounds are normal. Musculoskeletal: Normal range of motion. Neurological: He is alert and oriented to person, place, and time. Skin: Skin is warm and dry. No rash noted. No erythema. Psychiatric: He has a normal mood and affect. Nursing note and vitals reviewed. Vitals: 04/23/18 1141 BP: 124/78 BP Location: Left arm Patient Position: Sitting Pulse: 101 Resp: 18 Temp: 37.1 ??C (98.7 ??F) TempSrc: Oral SpO2: 96% Weight: 129.3 kg (285 lb) Height: 182.9 cm (6') Assessment/Plan Use the ear drops as prescribed no swimming for the next 7 days use swimmers ear after swimming forthe rest of the summer. If not improving follow up with PCP. If hearing decreases or intense pain go to the emergency department. Diagnoses and all orders for this visit: Acute diffuse otitis externa of left ear (Primary) - hutnggct-libwghsez-RS (CORTISPORIN) 3.5-10,000-1 mg/mL-unit/mL-% otic suspension; Administer 2 drops into the left ear 4 (four) times a day for 7 days. No notes on file Cosigned by Anthony Ellis MD at 05/05/2018 3:01 PM CDT documented in this encounter Plan of Treatment Not on file documented as of this encounter Visit Diagnoses Diagnosis Acute diffuse otitis externa of left ear- Primary documented in this encounter Care Teams Hopper Attendant Relationship Specialty Start Date End Date No, Physician PCP - General 04/23/18 documented as of this encounter
--- OUTSIDE RECORDS SUMMARY | 2024-10-04 23:20 | XMS_ITS | Encounter Summary ---
Author Organization [facility] Address [address] [place] [id number] Care Team Providers Care Afloat Cryptologic Manager Name Role Phone No, Physician Primary Care Provider [phone] Reason for Visit * Reason Comments Sore Throat woke up last night w ith chills and fever and bilateral ear pain. Has been exposed to strep by his girlfriend. Encounter Details Date Type Department Care Team (Late st Contact Info) Description 09/14/2019 8:45 AM AUTOMOTIVE FINANCE MANAGER Office Visit [facility] [address] [place] [address] [place] [id number] Viry Suggs, CLASSIFICATION ANALYST [address] [place] [address] Fever, unspecified fever cause (Primary Dx); Strep pharyngitis Social History Tobacco Use Types Packs/Day Years Used Date Smoking Tobacco: Every Day E-cigarettes Smokeless Tobacco: Former Sex and Gender Information Value Date Recorded Sex Assigned at Not on file Legal Sex Male 11:30 AM CDT Gender Identity Not on file Sexual Orientation Not on file documented as of this encounter Last Filed Vital Signs Vital Sign Reading Time Taken Comments Blood Pressure 126/74 09/14/2019 8:37 AM AUTOMOTIVE FINANCE MANAGER Pulse 118 09/14/2019 8:37 AM AUTOMOTIVE FINANCE MANAGER Temperature 37.2 ??C (98.9 ??F) 09/14/2019 8:37 AM CS T Respiratory Rate 20 09/14/2019 8:37 AM AUTOMOTIVE FINANCE MANAGER Oxygen Saturation 96% 09/14/2019 8:37 AM AUTOMOTIVE FINANCE MANAGER Inhaled Oxygen Concentration - - Weight 129.6 kg (285 lb 12.8 oz) 09/14/2019 8:37 AM AUTOMOTIVE FINANCE MANAGER Height 182.9 cm (6') 09/14/2019 8:37 AM AUTOMOTIVE FINANCE MANAGER Body Mass Index 38.76 09/14/2019 8:37 AM AUTOMOTIVE FINANCE MANAGER documented in this encounter Patient Instructions * Patient Instructions* Viry Suggs NP - 09/14/2019 8:45 AM AUTOMOTIVE FINANCE MANAGER The rapid strep exam performed at the [facility] was positive. The following is recommended treatment for Strep pharyngitis (strep throat) ??? Complete antibiotic as prescribed ??? Take Tylenol or Motrin for fever/pain ??? Gargle with warm salt water (1tsp salt/1 cup water) or warm tea with honey and lemon to soothe pain ??? Suck on ice chips, popsicles, cough drops, or throat lozenges ??? You may return to work, daycare, or school 24 hours after starting antibiotics and you are fever free without use of Tylenol or Motrin. ??? Strep pharyngitis is contagious. Do not share food, drinks, or utensils ??? Replace your toothbrush within 48 hours after starting antibiotics. If signs/symptoms do not improve or worsen, follow up with your PCP. MOTIVE FINANCE MANAGER documented in this encounter Ordered Prescriptions Prescription Sig Dispense Quantity Refills Last Filled Start Date End Date amoxicillin (amoxicillin) 500 mg tablet/capsuleIndic ations:Strep pharyngitis Take 1 tablet/caps ule (500 mg total) by mouth 2 (two) times a day for 10 days 20 tablet/capsule 09/14/2019 2019 amoxicillin (amoxicillin) 500 mg tablet/capsuleIndic ations:Strep pharyngitis Take 1 tablet/caps ule (500 mg total) by mouth 2 (two) times a day for 10 days 20 tablet/capsule 09/14/2019 09/14/2019 documented in this encounter Progress Notes * Viry Suggs NP - 09/14/2019 8:45 AM CST Images from the original note were not included. Subjective/Objective Patient ID: Bahman Jones is a 23 y.o. male. Chief Complaint Sore Throat (woke up last night with chills and fever and bilateral ear pain. Has been exposed to strep by his girlfriend. ) Presents to [facility] with c/o sore throat, bilateral ear pain, fever, and chills, onset lastnight. His girlfriend was recently diagnosed with strep. He has not taken anything for fever/discomfort. Review of Systems Constitutional: Positive for fever. Negative for chills. HENT: Positive for ear pain (bilateral). Negative for congestion, postnasal drip, rhinorrhea and sore throat. Respiratory: Negative for cough, chest tightness, shortness of breath and wheezing. Cardiovascular: Negative for chest pain. Skin: Negative for rash. Neurological: Negative [...] tenderness or frontal sinus tenderness. Mouth/Throat: Pharynx: Posterior oropharyngeal erythema present. Tonsils: No tonsillar exudate or tonsillar abscesses. Swellin+ on the right. 3+ on the left. Eyes: Conjunctiva/sclera: Conjunctivae normal. Cardiovascular: Rate and Rhythm: Normal rate and regular rhythm. Pulmonary: Effort: Pulmonary effort is normal. Breath sounds: Normal breath sounds. No wheezing or rhonchi. Abdominal: Palpations: Abdomen is soft. Musculoskeletal: Normal range of motion. Lymphadenopathy: Head: Right side of head: Submental and tonsillar adenopathy present. Left side of head: Submental and tonsillar adenopathy present. Skin: General: Skin is warm and dry. Neurological: Mental Status: He is alert and oriented to person, place, and time. Vitals: 09/14/19 0837 BP: 126/74 BP Location: Left arm Patient Position: Sitting Pulse: 118 Resp: 20 Temp: 37.2 ??C (98.9 ??F) TempSrc: Oral SpO2: 96% Weight: 129.6 kg (285 lb 12.8 oz) Height: 182.9 cm (6') Results for orders placed or performed in visit on 09/14/19 POCT rapid strep A Result Value Ref Range Rapid Strep A, POC Positive Assessment/Plan Diagnoses and all orders for this visit: Fever, unspecified fever cause (Primary) - POCT rapid strep A Strep pharyngitis - amoxicillin (amoxicillin) 500 mg tablet/capsule; Take 1 tablet/capsule (500 mg total) by mouth 2 (two) times a day for 10 days Patient Education: The rapid strep exam performed at the [facility] today was positive. The following is recommended treatment for Strep pharyngitis (strep throat) ??? Complete antibiotic as prescribed ??? Take Tylenol or Motrin for fever/pain ??? Gargle with warm salt water (1tsp salt/1 cup water) or warm tea with honey and lemon to soothe pain ??? Suck on ice chips, popsicles, cough drops, or throat lozenges ??? You may return to work, daycare, or school 24 hours after starting antibiotics and you are fever free without use of Tylenol or Motrin. ??? Strep pharyngitis is contagious. Do not share food, drinks, or utensils ??? Replace your toothbrush within 48 hours after starting antibiotics. If signs/symptoms do not improve or worsen, follow up with your PCP. Disposition ??? Treatment plan including expectations, follow up, and return precautions discussed with patient/parent, verbalizes understanding. ??? Medication dosage, use, and potential adverse reactions discussed with patient/parent. ??? Advised to follow up with PCP if symptoms do not resolve as expected or sooner if condition worsens. ??? Signs/symptoms warranting ER evaluation reviewed. Viry Suggs NP MOTIVE FINANCE MANAGER MOTIVE FINANCE MANAGER documented in this encounter Miscellaneous Notes * Addendum Note - Bacilio Ly MA - 09/14/2019 8:45 AM CSTAddended by: BACILIO LY on: 09/14/2019 09:20 AM Modules accepted: Orders MOTIVE FINANCE MANAGER * Addendum Note - Viry Suggs NP - 09/14/2019 8:45 AM CSTAddended by: VIRY SUGGS on: 09/14/2019 11:06 AM Modules accepted: Orders MOTIVE FINANCE MANAGER documented in this encounter Plan of Treatment Not on file documented as of this encounter Procedures Procedure Name Priority Date/Time Associated Diagnosis Comments POCT RAPID STREP Routine 09/14/2019 8:46 AM AUTOMOTIVE FINANCE MANAGER Strep pharyngitis documented in this encounter Results * (ABNORMAL) POCT rapid strep A (09/14/2019 8:46 AM AUTOMOTIVE FINANCE MANAGER) Rapid Strep A, POC Positive Swab 09/14/2019 8:46 AM AUTOMOTIVE FINANCE MANAGER Viry Suggs NP POINT OF CARE TEST ORDER JT Final Result documented in this encounter Visit Diagnoses Diagnosis Fever, unspecified fever cause- Primary Strep pharyngitis documented in this encounter Discontinued Medications Medication Sig Discontinue Reason Start Date End Da te amoxicillin (amoxicillin) 500 mg tablet/capsuleIndications :Strep pharyngitis Take 1 tablet/capsule (500 mg total) by mouth 2 (two) times a day for 10 days 09/14/2019 09/14/2019 documented as of this encounter Care Teams Afloat Cryptologic Manager Relationship Specialty Start Date End Date No, Physician PCP - General 04/23/18 documented as of this encounter
--- OUTSIDE RECORDS SUMMARY | 2024-10-04 23:20 | XMS_ITS | Encounter Summary ---
Author Organization [facility] Healthcare Address [address] [place] [address] Care Team Providers Care Casting Supervisor Name Role Phone No, Physician Primary Care Provider [phone] Encounter Details Date Type Department Care Team (Late st Contact Info) Description 05/16/2022 4:05 PM CDT Lab [address] [address] Sore throat; Viral URI Social History Tobacco Use Types Packs/Day Years Used Date Smoking Tobacco: Every Day E-cigarettes Smokeless Tobacco: Former Sex and Gender Information Value Date Recorded Sex Assigned at Not on file Legal Sex Male 11:30 AM CDT Gender Identity Not on file Sexual Orientation Not on file documented as of this encounter Miscellaneous Notes * Result Encounter Note - Chrissy Kamara MA - 05/18/2022 7:10 PM CDT Pt informed. * Result Encounter Note - Luisana Saeed PA - 05/18/2022 3:09 PM CDT Please alert patient that throat culture was negative. documented in this encounter Plan of Treatment Not on file documented as of this encounter Procedures Procedure Name Priority Date/Time Associated Diagnosis Comments THROAT CULTURE Routine 05/16/2022 10:05 AM CDT Sore throat Viral URI documented in this encounter Results * Throat culture Throat (05/16/2022 10:05 AM CDT) Report Final Report: No growth of pathogens. BHAKTI LUCIA Comment:Testing performed by : [facility], [address] [place] [address] Throat 05/16/2022 10:0 5 AM CDT 05/16/2022 8:38 PM CDT Narrative BHAKTI LUCIA - 05/18/2022 3:04 PM CDT Testing performed by [facility] Microbiology Laboratory ([phone]). Libby Baker NP LAB MICROBIOLOGY - [facility] ORDERABLES Final Result BHAKTI LUCIA [id number] [address] Department [place] [address] documented in this encounter Visit Diagnoses Diagnosis Sore throat Acute pharyngitis Viral URI Acute upper respiratory infections of unspecified site documented in this encounter Care Teams Casting Supervisor Relationship Specialty Start Date End Date No, Physician PCP - General 04/23/18 documented as of this encounter
--- OUTSIDE RECORDS SUMMARY | 2024-10-04 23:20 | XMS_ITS | Encounter Summary ---
Author Organization [facility] Facility Care Team Providers Care Chemical Process Operator Name Role Phone No, Physician Primary Care Provider [phone] Encounter Details Date Type Department Care Team (Latest Contact Info) Description 09/09/2019 Travel Social History Tobacco Use Types Packs/Day Years Used Date Smoking Tobacco: Former Smokeless Tobacco: Former Sex and Gender Information Value Date Recorded Sex Assigned at Not on file Legal Sex Male 11:30 AM CDT Gender Identity Not on file Sexual Orientation Not on file documented as of this encounter Plan of Treatment Not on file documented as of this encounter Visit Diagnoses Not on filedocumented in this encounter Care Teams Chemical Process Operator Relationship Specialty Start Date End Date No, Physician PCP - General 04/23/18 documented as of this encounter
--- OUTSIDE RECORDS SUMMARY | 2024-10-04 23:20 | XMS_ITS | Encounter Summary ---
Author Organization [facility] Facility Care Team Providers Care Consulting Technical Manager Name Role Phone No, Physician Primary Care Provider [phone] Encounter Details Date Type Department Care Team (Latest Contact Info) Description 09/14/2019 Travel Social History Tobacco Use Types Packs/Day [...] on filedocumented in this encounter Care Teams Consulting Technical Manager Relationship Specialty Start Date End Date No, Physician PCP - General 04/23/18 documented as of this encounter
== END 2024-09-27 17:36 | disposition home or self-care (01) ==
PROVIDERS: Emergency Provider Registered Nurse
DX: J10.1 Influenza due to other identified influenza virus with other respiratory manifestations (principal); Z20.822 Contact with and (suspected) exposure to COVID-19; F17.290 Nicotine dependence, other tobacco product, uncomplicated; F12.90 Cannabis use, unspecified, uncomplicated
CPT/HCPCS: 87081; 87426; 87804; 87880; 99213; G0463